=== PATIENT | female | born 1965 | race Caucasian/White ===

== ENCOUNTER 2016-08-25 20:16 | Emergency (ER) | payer BC ==
[~2016-08-25] VITALS: Ht 172.7 cm; Wt 63.6 kg
[~2016-08-25 20:16] MED LIST: EFF50 PO; HYDR-5688 PO; PANT40TA PO; TOPI100T20 PO
[2016-08-25 20:20] VITALS: TEMP 36.5; Ht 172.7 cm; Wt 63.6 kg
[2016-08-25] MEDS ORDERED: ONDANSETRON 8 MG/54 ML D5W IV STA (20:43)
[2016-08-25] MEDS ORDERED: SODIUM CHLORIDE 0.9% 1000ML 1,000 ML IV STA (20:43)
[2016-08-25] MEDS ORDERED: KETOROLAC TROMETHAMINE 30 MG/ML VIAL IV STA (20:43)
[2016-08-25] MEDS ORDERED: PANT40TA PO (20:44)
[2016-08-25] MEDS ORDERED: VENL100T2 PO (20:45)
[2016-08-25] MEDS ORDERED: TOPI50TA24 PO (20:46)
[2016-08-25] MEDS ORDERED: TRAM-10 PO (20:47)
--- NOTE | 2016-08-25 21:16 | DIAGNOSTIC IMAGING REPORT ---
CHEST ONE VIEW PORTABLE CLINICAL HISTORY: Weakness. Altered mental status. COMPARISON STUDY: Chest radiograph May 14, 2015. FINDINGS: Lung volumes are normal. There is no pneumothorax or pleural effusion. There is asymmetric left hemithorax opacification. Right lung is clear. Cardiac size is normal. Mediastinal contours are normal. There is no evidence of pulmonary edema. The patient is mildly rotated. IMPRESSION: Asymmetric left lung opacity. This is likely artifactual, related to patient rotation. Airspace opacity could appear similar although is considered less likely. If persistent symptoms, PA and lateral chest radiographs are recommended. Electronically signed by: Austin Schultz M.D. 08/25/2016 9:14 PM Dictated Date/Time: 08/25/2016 9:12 PM
[2016-08-25 21:29] LABS: HEMATOCRIT 42.1 % (37-47); MEAN CELL VOLUME 85.2 fL (80-100); MEAN CORPUSCULAR HEMOGLOBIN 28.7 pg (25-34); MEAN CORPUSCULAR HGB CONC 33.7 g/dl (32-36); MEAN PLATELET VOLUME 8.2 fL (7.4-10.4); PLATELET COUNT 301 K/uL (130-400); RED BLOOD COUNT 4.94 M/uL (4.2-5.4); WHITE BLOOD COUNT 5.46 K/uL (4.8-10.8)
[2016-08-25 21:51] LABS: ALT/SGPT 30 U/L (12-78); BLOOD UREA NITROGEN 14 mg/dl (7-18); BUN/CREATININE RATIO 15.1 (10-20); CALCIUM 9.8 mg/dl (8.5-10.1); CARBON DIOXIDE 27 mmol/L (21-32); CHLORIDE 110 mmol/L (98-107); CREATININE 0.93 mg/dl (0.60-1.20); GLUCOSE 80 mg/dl (70-99); MAGNESIUM 2.3 mg/dl (1.8-2.4); POTASSIUM 3.4 mmol/L (3.5-5.1); SODIUM 143 mmol/L (136-145)
[2016-08-25 22:00] LABS: ALKALINE PHOSPHATASE 73 U/L (45-117); AST/SGOT 24 U/L (15-37); CKMB/CK RATIO 0.7 (0-3.0)
[2016-08-25 22:03] LABS: BASO % 0.4 %; BASO ABS # 0.02 K/uL (0-0.2); COMPLETE YES; EOS % 1.5 %; LYMPH % 51.1 %; LYMPH ABS # 2.79 K/uL (1.2-3.4)
[2016-08-25] MEDS ORDERED: ACETAMINOPHEN 500 MG TAB PO STA (23:40)
--- NOTE | 2016-08-25 23:58 | EMERGENCY ROOM VISIT NOTE ---
History Report prepared by [place]: Sabrina Velarde Under the Supervision of: Dr. Javan Arauz D.O. First contact with patient: 20:38 Chief Complaint: HEADACHE Stated Complaint: HEAT STROKE SX History of Present Illness The patient is a 51 year old female who presents to the Emergency Room with complaints of a constant illness beginning last night. The patient states that she was out in the sun yesterday for a few hours and began to not feel well. She notes that she was feeling nauseous and having cramps but stayed in the sun anyway. She reports that throughout the night she had constant diaphoresis with intermittent chills. Today she complains of dizziness, continued diaphoresis, and a headache. She notes that she took 5mg of Prednisone for her headache that she is prescribed after getting Botox injections for her migraine history. The patient denies any urinary symptoms. She notes that she has had heat stroke before and this feels similar. Source of History: patient Onset: last night Position: other (global) Timing: constant Associated Symptoms: + fevers, + chills, + headache, + diaphoresis, + nausea , No urinary symptoms Note: Pt complains of cramping and dizziness. Review of Systems See HPI for pertinent positives & negatives. A total of 10 systems reviewed and were otherwise negative. Past Medical & Surgical Medical Problems: (1) Malign Neopl Breast Nos (2) Migraine Unspecified W/O Intract Mgrn W/O Status Migrainosus (3) Reflux Esophagitis Surgical Problems: (1) History of endometrial ablation (2) History of mastectomy Family History No pertinent family history stated. Social History Smoking Status: Never Smoker Alcohol Use: none Drug Use: none Marital Status: Housing Status: lives with family Occupation Status: employed Current/Historical Medications Scheduled Pantoprazole (Protonix), 40 MG PO DAILY Topiramate (Topamax), 50 MG PO BID Venlafaxine Hcl (Effexor), 100 MG PO DAILY Scheduled PRN Tramadol (Ultram), 50 MG PO Q8H PRN for Pain Allergies Coded Allergies: Amoxicillin (Verified Allergy, Mild, DIARRHEA, 05/14/15) Clavulanic Acid (Verified Allergy, Mild, DIARRHEA, 05/14/15) Sumatriptan (Verified Allergy, Mild, 05/14/15) Oxycodone (Unverified Allergy, Unknown, HIVES, 05/14/15) Physical Exam Vital Signs Date Time Temp Pulse Resp B/P (MAP) Pulse Ox O2 Delivery O2 Flow Rate FiO2 08/25/16 22:10 57 18 123/61 95 Room Air 08/25/16 20:20 36.5 74 20 146/85 96 Room Air Physical Exam CONSTITUTIONAL/VITAL SIGNS: Reviewed / noted above. GENERAL: Non-toxic in appearance. INTEGUMENTARY: Warm, dry, and [place]. HEAD: Normocephalic. EYES: without scleral icterus or trauma. ENT/OROPHARYNX: clear and moist. LYMPHADENOPATHY/NECK: Is supple without lymphadenopathy or meningismus. RESPIRATORY: Lungs clear and equal. CARDIOVASCULAR: Regular rate and rhythm. GI/ABDOMEN: Soft and nontender. No organomegaly or pulsatile mass. No rebound or guarding. Normal bowel sounds. EXTREMITIES: Warm and well perfused. BACK: No CVA tenderness. NEUROLOGICAL: Intact without focal deficits. PSYCHIATRIC: normal affect. MUSCULOSKELETAL: Normally developed with good muscle tone. Medical Decision & Procedures ER Provider Diagnostic Interpretation: X ray results and stated below per my interpretation and radiology interpretation. CHEST ONE VIEW PORTABLE FINDINGS: Lung volumes are normal. There is no pneumothorax or pleural effusion. There is asymmetric left hemithorax opacification. Right lung is clear. Cardiac size is normal. Mediastinal contours are normal. There is no evidence of pulmonary edema. The patient is mildly rotated. IMPRESSION: Asymmetric left lung opacity. This is likely artifactual, related to patient rotation. Airspace opacity could appear similar although is considered less likely. If persistent symptoms, PA and lateral chest radiographs are recommended. Electronically signed by: Austin Schultz M.D. 08/25/2016 9:14 PM Dictated Date/Time: 08/25/2016 9:12 PM Laboratory Results 08/25/16 21:10 Red Blood Count 4.94, Mean Corpuscular Volume 85.2, Mean Corpuscular Hemoglobin 28.7, Mean Corpuscular Hemoglobin Concent 33.7, Mean Platelet Volume 8.2, Neutrophils (%) (Auto) 41.0, Lymphocytes (%) (Auto) 51.1, Monocytes (%) (Auto) 6.0, Eosinophils (%) (Auto) 1.5, Basophils (%) (Auto) 0.4, Neutrophils # (Auto) 2.24, Lymphocytes # (Auto) 2.79, Monocytes # (Auto) 0.33, Eosinophils # (Auto) 0.08, Basophils # (Auto) 0.02 08/25/16 21:10 Test 08/25/16 21:10 White Blood Count 5.46 K/uL (4.8-10.8) Red Blood Count 4.94 M/uL (4.2-5.4) Hemoglobin 14.2 g/dL (12.0-16.0) Hematocrit 42.1 % (37-47) Mean Corpuscular Volume 85.2 fL (80-100) Mean Corpuscular Hemoglobin 28.7 pg (25-34) Mean Corpuscular Hemoglobin Concent 33.7 g/dl (32-36) Platelet Count 301 K/uL (130-400) Mean Platelet Volume 8.2 fL (7.4-10.4) Neutrophils (%) (Auto) 41.0 % Lymphocytes (%) (Auto) 51.1 % Monocytes (%) (Auto) 6.0 % Eosinophils (%) (Auto) 1.5 % Basophils (%) (Auto) 0.4 % Neutrophils # (Auto) 2.24 K/uL (1.4-6.5) Lymphocytes # (Auto) 2.79 K/uL (1.2-3.4) Monocytes # (Auto) 0.33 K/uL (0.11-0.59) Eosinophils # (Auto) 0.08 K/uL (0-0.5) Basophils # (Auto) 0.02 K/uL (0-0.2) RDW Standard Deviation 40.6 fL (36.4-46.3) RDW Coefficient of Variation 13.1 % (11.5-14.5) Immature Granulocyte % (Auto) 0.0 % Immature Granulocyte # (Auto) 0.00 K/uL (0.00-0.02) Anion Gap 6.0 mmol/L (3-11) Est Creatinine Clear Calc Drug Dose 73.5 ml/min Estimated GFR () 83.6 Estimated GFR (Non- 72.2 BUN/Creatinine Ratio 15.1 (10-20) Calcium Level 9.8 mg/dl (8.5-10.1) Magnesium Level 2.3 mg/dl (1.8-2.4) Total Bilirubin 0.3 mg/dl (0.2-1) Direct Bilirubin < 0.1 mg/dl (0-0.2) Aspartate Amino Transf (AST/SGOT) 24 U/L (15-37) Alanine Aminotransferase (ALT/SGPT) 30 U/L (12-78) Alkaline Phosphatase 73 U/L (45-117) Total Creatine Kinase 175 U/L (26-192) Creatine Kinase MB 1.3 ng/ml (0.5-3.6) Creatine Kinase MB Ratio 0.7 (0-3.0) Total Protein 7.7 gm/dl (6.4-8.2) Albumin 4.2 gm/dl (3.4-5.0) Lipase 276 U/L (73-393) Thyroid Stimulating Hormone (TSH) 5.120 uIu/ml (0.300-4.500) Laboratory results as stated above per my review. Medications Administered Medications (Trade) Dose Ordered Sig/He Route Start Time Stop Time Status Last Admin Dose Admin Sodium Chloride 1,000 ml @ 999 mls/hr Q1H1M STAT IV 08/25/16 20:43 08/25/16 21:43 DC 08/25/16 21:06 999 MLS/HR Ketorolac Tromethamine (Toradol Inj) 30 mg NOW STAT IV 08/25/16 20:43 08/25/16 20:45 DC 08/25/16 21:07 30 MG Ondansetron HCl (Zofran 8mg Iv) 8 mg NOW STAT IV 08/25/16 20:43 08/25/16 20:45 DC 08/25/16 21:06 8 MG Acetaminophen (Tylenol Tab) 1,000 mg NOW STAT PO 08/25/16 23:40 08/25/16 23:41 DC 08/25/16 23:45 1,000 MG ECG Indication: diaphoresis Rate (beats per minute): 53 Rhythm: sinus bradycardia Findings: no acute ischemic change, no ectopy ED Course 2037: Previous medical records were reviewed. The patient was evaluated in room C8. A complete history and physical examination was performed. 2042: Ondansetron HCl 8mg IV, Toradol Inj 30mg IV, Sodium Chloride 1000 ml @ 999 mls/hr IV. 2338: I reevaluated and updated the patient. 2340: Tylenol Tab 1000mg PO. 0005: On reevaluation, the patient is doing well. I discussed the results and findings with the patient. She verbalized agreement of the treatment plan. The patient was discharged home. Medical Decision Differential includes acute coronary syndrome, myocardial infarction, CVA, TIA, anemia, infection, pneumonia, UTI, pyelonephritis, poor nutrition, dehydration, electrolyte disturbance,hypoglycemia. Medication Reconciliation: I attest that I have personally reviewed the patient' s current medication list. Patient was found to have a slightly elevated blood pressure due to circumstances. I do not believe that the patient requires hypertension monitoring. This is a 51-year-old female who presents to the ED with a chief complaint of nausea and cramps, dizziness, headache, feeling hot and sweaty. The patient states that she was out in the sun yesterday and developed the symptoms. The patient feels that she might be suffering from a heat related illness. Her vital signs are normal. Her physical exam was unremarkable. EKG showed a sinus rhythm at a rate of 53. CBC and complete metabolic panel were normal. TSH was normal. Lipase is normal. The patient was hydrated with IV fluids, given IV Toradol and IV Zofran as well as by mouth Tylenol. The patient is felt to be stable for discharge and outpatient follow-up. Impression Primary Impression: Malaise and fatigue Additional Impression: Headache Scribe Attestation The scribe's documentation has been prepared under my direction and personally reviewed by me in its entirety. I confirm that the note above accurately reflects all work, treatment, procedures, and medical decision making performed by me. Departure Information Dispostion Home / Self-Care Referrals Vashti Stark D.O. (PCP) Forms HOME CARE DOCUMENTATION FORM, IMPORTANT VISIT INFORMATION Patient Instructions My [facility] Additional Instructions Rest. Ensure adequate oral hydration. Take Tylenol or Motrin as needed for headache. Follow-up with your doctor for further care and evaluation in 2-5 days. Return to the emergency department for worsening or new symptoms or any concerns. You have been examined and treated today on an emergency basis only. This is not a substitute for, or an effort to provide, complete comprehensive medical care. It is impossible to recognize and treat all injuries or illnesses in a single emergency department visit. It is therefore important that you follow up closely with your doctor. Call as soon as possible for an appointment. Problem Qualifiers
[2016-08-26 00:20] VITALS: BP 116/69; PULSE 62; O2SAT 99
== END 2016-08-26 00:21 | disposition home or self-care (01) ==
LOC: C.EDB 20:17 → C.EDC 08-26 00:21
DX: R53.81 Other malaise (principal); R53.83 Other fatigue; R51 Headache; Z85.3 Personal history of malignant neoplasm of breast; K21.0 Gastro-esophageal reflux disease with esophagitis; Z79.899 Other long term (current) drug therapy